=== PATIENT | female | born 2000 | race Caucasian/White ===

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

== ENCOUNTER → 2021-02-15 | Outpatient (REF) | payer OTHER | LOC: M LAB REF 14:29 | PROVIDERS: ATTEND Nurse Practitioner Family | DX: D23.5 Other benign neoplasm of skin of trunk (principal) ==

== ENCOUNTER → 2023-09-15 | Outpatient (REF) | payer OTHER ==
[2023-09-15 14:29] LABS: HIV 1&2 SCREEN NEGATIVE (NEGATIVE)
[2023-09-15 14:37] LABS: HEPATITIS C VIRUS ABY INDEX < 0.02 INDEX (<0.8)
== END ==
LOC: M LAB REF 12:37
PROVIDERS: ATTEND Physician Assistant
DX: Z11.3 Encounter for screening for infections with a predominantly sexual mode of transmission (principal)